=== PATIENT | female | born 1945 | race Hispanic/Latino ===

== ENCOUNTER 2018-04-13 06:43 | Day surgery (SDC) | payer MEDICARE ==
[2018-04-09 08:57] VITALS: BMI 40.6
[2018-04-13] MEDS ORDERED: Propofol 10 mg/ml Inj (20 ML) ONE ×2 (08:07→08:20)
[2018-04-13] MEDS ORDERED: Sodium Chloride 0.9% 1,000 ML IV SCH (08:30)
[2018-04-13 09:14] VITALS: PULSE 92; RESP 19; TEMP 97.9; O2SAT 98
[2018-04-13 09:23] VITALS: BP 112/60
== END 2018-04-13 10:09 | disposition home or self-care (01) ==
LOC: ENDO 06:43
PROVIDERS: ATTEND Internal Medicine Gastroenterology
DX: D13.0 Benign neoplasm of esophagus (principal); K20.9 Esophagitis, unspecified; K44.9 Diaphragmatic hernia without obstruction or gangrene; K29.70 Gastritis, unspecified, without bleeding; K29.80 Duodenitis without bleeding; R13.10 Dysphagia, unspecified
CPT/HCPCS: 43239; 88305; 88312; 88342; J2001; J2704; J7030; J7040

== ENCOUNTER 2019-01-20 08:15 | Outpatient (CLI) | payer MEDICARE, MEDICAID | END 2019-01-20 08:16 | disposition home or self-care (01) | LOC: PAT 08:15 ==

== ENCOUNTER 2019-01-28 07:15 | Day surgery (SDC) | payer MEDICARE, MEDICAID ==
[2018-04-09 08:57] VITALS: BMI 40.6
[2019-01-28] MEDS ORDERED: Midazolam 2 MG/2 ML VIAL ONE (12:21)
[2019-01-28] MEDS ORDERED: Ketamine 10 mg/ml Inj (20 ml) ONE (12:21)
[2019-01-28] MEDS ORDERED: Propofol 10 mg/ml Inj (20 ML) ONE (12:22)
[2019-01-28] MEDS: Bupivacaine 0.5% 50 ML IJ ONE ×2 (12:50→13:25)
[2019-01-28] MEDS: Lidocaine 1% Inj (20ml) ONE ×2 (12:50→13:25)
[2019-01-28] MEDS ORDERED: HYDROmorphone 0.5 mg/0.5 ml ISec IVP PRN (13:37)
[2019-01-28] MEDS ORDERED: Lactated Ringer's 1,000 ML IV SCH (13:45)
--- NOTE | 2019-01-28 13:46 | CP.SDSHP ---
Same Day Surgery H & P - History Proposed Procedure: Excision of lipoma, stomal polyp excision with electrocautery Pre-Op Diagnosis: lipoma, stomal granuloma - Previous Medical/Surgical History Cardiac: Hypertension Pulmonary: Cough/URI Endocrine/Metabolic: Obesity - Allergies Allergies: Allergies pregabalin [From Lyrica] Allergy (Severe, Verified 09/11/18 10:43) MOOD CHANGES NEXIUM Adverse Reaction (Intermediate, Uncoded 10/21/14 10:24) DIARRHEA DEVELOPES CRAMPS, HEADACHE AND SEVERE DIARRHEA - Physical Exam Vital Signs: Vital Signs 01/28/19 01/28/19 08:11 08:14 Temperature 98.1 F 98.1 F Pulse Rate 94 H 94 H Respiratory 18 18 Rate Blood Pressure 129/56 L 129/56 L O2 Sat by Pulse 96 96 Oximetry Short Stay Discharge - Short Stay Discharge Admitting Diagnosis/Reason for Visit: D48.1 Disposition: HOME/ ROUTINE Referrals: Vita Hinton MD [Primary Care Provider] - Follow-up: Follow up with Dr. Bella within 2 weeks for suture removal. Please call to make an appointment. Additional Instructions (Diet, Activity): Remove dressings after 48 hours. Ok to shower starting 01/30/19. Activity as tolerated. For pain, please take Tylenol or Motrin. With Motrin do not take on an empty stomach. If these do not alleviate pain, please call Dr. Bella's office. If symptoms worsen, promptly return to nearest emergency department.
--- NOTE | 2019-01-28 13:49 | PCM.SURG1 ---
Surgeon's Initial Post Op Note - Surgeon's Notes Surgeon: Dr. Bella Folder Gluer Operator: Dr. Zuniga, Dr. Lockhart, Dr. Shrestha Type of Anesthesia: IV Sedation Anesthesia Administered By: Dr. Jasmine Pre-Operative Diagnosis: Left gluteal mass, Granuloma vs polyp of stoma Operative Findings: see operative dictation Post-Operative Diagnosis: same Operation Performed: Excision of left gluteal lipoma, Stomal polypectomy with cauterization Specimen/Specimens Removed: Lipoma, Stomal polyp Estimated Blood Loss: EBL {In ML}: 5 Blood Products Given: N/A Drains Used: No Drains Post-Op Condition: Good Date of Surgery/Procedure: 01/28/19 Time of Surgery/Procedure: 13:48
[2019-01-28 14:43] VITALS: RESP 18
[2019-01-28 15:03] VITALS: BP 117/61; PULSE 94; TEMP 98.1; O2SAT 95
--- NOTE | 2019-01-28 21:24 | PCM.OP ---
Operative Report - Operative Report Date of Surgery/Procedure: 01/28/19 Time of Surgery/Procedure: 13:45 Surgeon: Dr. Aleksandr Bella Coal Pulverizer Operator: Cristela Zuniga, PGY-2; Naveed Mcdonald PGY-1, Kailey Cooper, PGY-1 Anesthesia/Sedation: IV sedation and local anesthetic Pre-Operative Diagnosis: Left gluteal mass, small stomal polyp Post-Operative Diagnosis: left gluteal mass, small stomal polyp Indication for Surgery: pain of left gluteal area Procedure/Operation Description: Excision of left gluteal mass, polypectomy of stomal polyp
--- NOTE | 2019-01-29 00:45 | OP ---
PROCEDURE DATE: 01/28/2019 PROCEDURE: Excision of a left gluteal soft tissue mass and stromal polypectomy with electrocautery. SURGEON: Aleksandr Bella MD ELECTRICAL POWER STATION TECHNICIAN: Naveed Lockhart D.O., PGY-1, Cristela Zuniga DO, PGY-2 ANESTHESIA: Deep sedation. ANESTHESIOLOGIST: Dr. Burgess. PREOPERATIVE DIAGNOSIS: Gluteal soft tissue mass and a stromal polyp. POSTOPERATIVE DIAGNOSIS: Gluteal soft tissue mass and a stromal polyp. INDICATION: This is a 73-year-old female who presents as an outpatient with left gluteal discomfort secondary to a palpable rapidly growing soft tissue mass as well as a stromal polyp. Excision of the soft mass and stromal polyp were indicated and recommended at that time based on the patient's history and physical examination. The patient was medically optimized. The risks, benefits, and surgery rationale were explained. Informed consent was obtained with nurse at the bedside as witnessed. DESCRIPTION OF PROCEDURE: The patient was taken to the operating room and placed on the table in right lateral decubitus position. Time-outs were performed to verify correct patient, procedure, site, and additional critical information prior to beginning the procedure. Preoperatively, the patient received 2 g of Ancef. Deep sedation was initiated. The patient was then prepped and draped in a sterile fashion. The palpable soft tissue mass was marked, and a total of 30 mL of local anesthetic was injected. A 4 cm longitudinal incision was made through the left gluteal skin and subcutaneous tissue. Electrocautery was used to achieve hemostasis along skin edges. Blunt dissection and electrocautery were used to remove the mass which appeared to be a large lipoma. The mass was sent to pathology. Good hemostasis was achieved. The wound was irrigated with normal saline and closed in layers. The deepest layer was closed using 2-0 Vicryl. Interrupted deep dermal sutures were placed using 2-0 Vicryl, and the skin was reapproximated with 4-0 vertical mattress nylon sutures. Sterile dressing were applied. We then prepped with Betadine and draped the patient's left lower quadrant stoma. Electrocautery was used to remove the polyp versus granuloma on the left lateral portion of the stoma. The mass was sent for pathology. Good hemostasis was achieved. IV sedation was reversed. Both operative ramos were clean and dry. No intraoperative complications were encountered. All instruments and sponge counts were correct. The patient was extubated in the OR and transferred to the PACU in stable condition. Naveed Lockhart D.O. Aleksandr Bella MD
== END 2019-01-28 15:45 | disposition home or self-care (01) ==
LOC: SDS 07:15
PROVIDERS: ATTEND Surgery
DX: D17.1 Benign lipomatous neoplasm of skin and subcutaneous tissue of trunk (principal); I10 Essential (primary) hypertension; E66.9 Obesity, unspecified; Z68.41 Body mass index [BMI] 40.0-44.9, adult
CPT/HCPCS: 27043; 88304; J0690; J1170; J2250; J2405; J2704; J2765; J3010; J7120 ×2